=== PATIENT | female | born 1970 | race Caucasian/White ===

== ENCOUNTER → 2018-11-17 22:13 | Outpatient (CLI) | payer BC ==
[2014-05-27 09:07] VITALS: BMI 23.9
[~2018-11-17 22:13] MED LIST: HYDROCODONE-APA1 TAB PO
== END | disposition home or self-care (01) ==
LOC: D.MAMMO 14:15
DX: Z12.31 Encounter for screening mammogram for malignant neoplasm of breast (principal)

== ENCOUNTER 2020-01-07 18:20 | Emergency (ER) | payer OTHER ==
[~2020-01-07] VITALS: Ht 160 cm; Wt 76.8 kg
[2020-01-07 18:26] VITALS: Ht 160 cm; Wt 76.8 kg
[2020-01-07] MEDS ORDERED: PERCOCET 7.5/321 TAB PO (18:27)
[2020-01-07] MEDS ORDERED: ELIQUIS2.5 MG PO (18:27)
[2020-01-07] MEDS ORDERED: BENADRYL50 MG PO (18:28)
[2020-01-07] MEDS ORDERED: ASPIRIN325 MG PO (18:28)
[2020-01-07] MEDS ORDERED: ZOFRAN8 MG PO (18:28)
[2020-01-07 18:44] LABS: BASOPHILS 0.1 % (0-2); EOSINOPHILS 2.1 % (0-7); HEMOGLOBIN 11.4 g/dL (12-16); IMMATURE GRANULOCYTES 0.3 % (0-5); LYMPHOCYTES 18.6 % (15-50); MCH 31.2 pg (26.0-34.0); MCHC 33.5 g/dL (31.0-37.0); MCV 93.2 fL (80.0-100.0); MEAN PLATELET VOLUME 8.8 fL (7.4-10.4); MONOCYTES 9.7 % (2-11); NEUTROPHILS 69.2 % (40-80); PLATELET COUNT 198 10x3/uL (130-400); RBC 3.65 10x6/uL (4.00-5.40); RDW 12.1 % (11.5-14.5); WBC 7.6 10x3/uL (4.8-10.8)
[2020-01-07 18:56] LABS: ANION GAP 13.8 mmol/L (8-16); CALCIUM 8.7 mg/dL (8.5-10.1); CREATININE - SERUM 0.9 mg/dL (0.6-1.3); POTASSIUM - SERUM 3.8 mmol/L (3.5-5.1)
[2020-01-07 19:01] LABS: ALBUMIN 3.1 g/dL (3.4-5.0); BILIRUBIN - TOTAL 0.66 mg/dL (0.2-1.3); PROTEIN - SERUM 7.1 g/dL (6.4-8.2)
[2020-01-07 19:02] LABS: INR 1.13 (0.85-1.17); PROTIME 14.4 SECONDS (11.6-15.0)
[2020-01-07 19:03] LABS: APTT 36.2 SECONDS (22.8-39.4)
[2020-01-07 19:04] LABS: D-DIMER-QUANTITATIVE 1.23 ug/mLFEU (0.20-0.54)
[2020-01-07 20:13] VITALS: BP 122/51
== END 2020-01-07 20:13 | disposition home or self-care (01) ==
LOC: D.ER 18:20
PROVIDERS: Emergency Medicine
DX: R22.31 Localized swelling, mass and lump, right upper limb (principal); L76.82 Other postprocedural complications of skin and subcutaneous tissue; Z96.651 Presence of right artificial knee joint